=== PATIENT | female | born 2000 | race Caucasian/White ===

== ENCOUNTER 2021-03-30 16:09 | Emergency (ER) | payer OTHER ==
[~2021-03-30] VITALS: Ht 177.8 cm; Wt 86.2 kg
--- NOTE | ~2021-03-30 | EMS ---
[facility] [address] [place] [address] EMS Patient Care Report Name: ANDER NEWMAN Room #: DEP Sophy#: [id number] Admission: 03/30/21 Attend Phys: Discharge: 03/30/21 Date of : 01 Report #: [id number] THIS REPORT FOR: //name// Report Transmitted: 04/03/2021 14:40 EMS Care Summary [place], [place]/[facility] Incident [id number] @ 03/30/2021 15:32 Incident Location [address] [place] [id number] Patient ANDER NEWMAN Female, 21 Years 2000 Patient Address [address] [place] [address] Patient History None Reported, Patient Allergies No known allergies, Patient Medications None Reported, Chief Complaint PASSED OUT Disposition Transported No Lights/[place] Dispatch Reason Unconscious/Fainting Transported To [facility] Narrative REC'D CALL FOR FAINTING, NOTES STATE PT HAD JUST GIVEN BLOOD. ON ARRIVAL FOUND PT LAYING ON PAVEMENT IN PARKING LOT OF THE [facility] WITH STAFF IN ATTENDANCE. PT IS ALERT AND ORIENTED AT THIS TIME. PT CONFIRMED THAT SHE HAD JUST GIVEN BLOOD AND WAS WALKING TO HER CAR WHEN SHE FAINTED. WITNESS STATED THAT HER HEAD [facility] [address] [place] [address] EMS Patient Care Report Name: ANDER NEWMAN Room #: DEP ER Sophy#: [id number] Admission: 03/30/21 Attend Phys: Discharge: 03/30/21 Date of : 01 Report #: [id number] BOUNCED OFF THE PAVEMENT. PT COMPLAINS OF PAIN IN THE BACK OF HER HEAD, BUT NO VISIBLE INJURIES. DENIES BLOOD THINNERS. PT WAS ASSISTED TO THE COT AND LOADED INTO AMBO. PT ASSESSMENT CONTINUED. WHEN PT TRIED TO LOOK AT HER PHONE SHE HAD TROUBLE FOCUSINGON THE SCREEN. PT DECIDED SHE SHOULD GO TO ER. I SUGGESTED [facility] BEING THE CLOSEST FACILITY, AND SHE AGREED. PT MONIOTRED CONTINUOUSLY DURING TRANSPORT, PT REMAINED STABLE. PT CARE PASSED TO [facility] OPEN STACK ADMINISTRATOR. Initial Vitals @15:53P: 75,SpO2: 100,[place] Suspected: false @15:56P: 67,R: 18,BP: 110/78,Pain: 6/10,GCS: 15,SpO2: 100,Revised Trauma: 12, @15:46P: 71,R: 24,BP: 114/84,Pain: 6/10,GCS: 15,Glucose: 122,SpO2: 100,Revised Trauma: 12, Assessments @15:44MENTAL:No Abnormalities,SKIN:HEENT:Head/Face: Other,Neck/Airway: No Abnormalities,LUNG SOUNDS:General: No Abnormalities,ABDOMEN:General: No Abnormalities,PELVIS//GI:No Abnormalities,EXTREMITIES:Capillary Refill: Right Upper: 3 Sec,Left Arm: No Abnormalities,Right Arm: No Abnormalities,Left Leg: No Abnormalities,Right Leg: No Abnormalities,PULSE:Radial: 2+ Normal,NEURO:No Abnormalities,@15:54MENTAL:No Abnormalities,SKIN:No Abnormalities,HEENT:Head/Face: No Abnormalities,Eyes: No Abnormalities,Neck/Airway: No Abnormalities,LUNG SOUNDS:General: No Abnormalities,ABDOMEN:General: No Abnormalities,PELVIS//GI:No Abnormalities,EXTREMITIES:Capillary Refill: Right Upper: 3 Sec,Left Arm: No Abnormalities,Right Arm: No Abnormalities,Left Leg: No Abnormalities,Right Leg: No Abnormalities,PULSE:Radial: 2+ Normal,NEURO:No Abnormalities, Impression Syncope / Fainting Procedures @15:42ALS AssessmentResponse: UnchangedSucceeded@15:45StretcherResponse: Unchanged@15:503-Lead ECGResponse: UnchangedSucceeded Timeline 15:31,Call Received 15:31,Dispatch Notified 15:32,Dispatched 15:32,En Route 15:41,On Scene 15:42,At Patient 15:42,ALS Assessment,Response: UnchangedSucceeded, 15:45,Stretcher,Response: Unchanged 15:46,BP: 114/84 M,PULSE: 71,RR: 24 R,SPO2: 100 Ox,ETCO2: ,B,PAIN: 6,GCS: 15, 15:50,3-Lead ECG,Response: UnchangedSucceeded, [address] [address] EMS Patient Care Report Name: TAYLOR NEWMANISTIN Room #: [facility] Sophy#: [id number] Admission: 03/30/21 Attend Phys: Discharge: 03/30/21 Date of : 01 Report #: [id number] 15:53,BP: / M,PULSE: 75,RR: R,SPO2: 100 Ox,ETCO2: ,BG: ,PAIN: ,GCS: , 15:56,BP: 110/78 M,PULSE: 67,RR: 18 R,SPO2: 100 Ox,ETCO2: ,BG: ,PAIN: 6,GCS: 15, 15:59,Depart Scene 16:04,At Destination 16:23,Call Closed Disclaimer v1.1 Copyright 2020 [employer] This EMS Care Summary contains data elements from the applicable legal record (which may be displayed differently). It is designed to provide pertinent information for the following purposes: continuity of care, clinical quality, and state data reporting. The complete legal record is available to ED staff and administrators of the receiving hospital in [facility]'s Patient Tracker. All data is provided "as is."
[2021-03-30 16:59] LABS: HEMATOCRIT 37.8 % (37.0-47.0); MCH 29.7 pg (26.0-34.0); MCHC 34.3 g/dL (28.0-37.0); MCV 86.6 fL (80.0-100.0); RBC 4.37 mil/uL (4.20-5.00); RDW 12.4 % (10.5-14.5); WBC 8.6 thou/uL (4.0-11.0)
[2021-03-30 17:01] LABS: CALCIUM 8.8 mg/dL (8.5-10.1); CREATININE 1.1 mg/dL (0.6-1.0); POTASSIUM 3.8 mmol/L (3.5-5.1)
[2021-03-30 17:09] LABS: ALBUMIN 3.5 g/dL (3.4-5.0); TOTAL BILIRUBIN 0.3 mg/dL (0.2-1.0); TOTAL PROTEIN 7.5 g/dL (6.4-8.2)
[2021-03-30 17:10] VITALS: BP 114/75
--- NOTE | 2021-03-31 11:04 | EKG ---
[address] [address] ELECTROCARDIOGRAM REPORT Name: CRISTYANDER JOHNSTON [id number] Admission: 03/30/21 Attend Phys: Discharge: 03/30/21 Date of : 01 Report #: [id number] [facility] ED Test Date: 2021-03-30 Test Time: 17:14:04 Pat Name: ANDER NEWMAN Department: Room: Gender: [employer] Manager: : 2000 Requested By: Edith Westbrook Order Number: [id number] MD: Erik Yanez Measurements Intervals [place] Rate: 66 P: 71 WY: 89 QRS: 48 QRSD: 100 T: 16 QT: 410 QTc: 430 Interpretive Statements Sinus rhythm Short W[place] interval No previous ECG available for comparison Electronically Signed On 03-31-2021 11:04:25 CDT by Erik Yanez [email or web address] <ELECTRONICALLY SIGNED> By: Erik Yanez MD 03/31/21 1104 1714 1714 Erik Yanez MD /EPI
== END 2021-03-30 18:38 | disposition home or self-care (01) ==
LOC: ER 16:09
PROVIDERS: Nurse Practitioner Family
DX: S20.212A Contusion of left front wall of thorax, initial encounter (principal); R55 Syncope and collapse; W01.198A Fall on same level from slipping, tripping and stumbling with subsequent striking against other object, initial encounter; Y93.89 Activity, other specified; Y92.89 Other specified places as the place of occurrence of the external cause; Y99.8 Other external cause status